=== PATIENT | male | born 1970 | race Caucasian/White ===

== ENCOUNTER 2017-02-10 06:29 | Day surgery (SDC) | payer BC, OTHER ==
[~2017-02-10 06:29] MED LIST: Buffered Lidocaine 0.9% SYRIN* 5 ML/SYR SYRINGE INTRADERM ONE
[2017-02-10] MEDS ORDERED: ceFAZolin 2 GM PREMIX (*) 2 GM/50 ML BAG IVPB ONE (06:56)
[2017-02-10] MEDS ORDERED: Bupivacaine 0.25% SDV* 30 ML ONE (07:11)
[2017-02-10] MEDS ORDERED: fentaNYL* 50 MCG/ML 2 ML VIAL (100 MCG VIAL) ONE ×2 (07:35→08:08)
[2017-02-10] MEDS ORDERED: Midazolam* 1 MG/ML 2 ML VIAL (2 MG) ONE ×2 (07:36→07:43)
[2017-02-10] MEDS ORDERED: Propofol* 10 MG/ML 20 ML BTL IV PUSH ONE (07:37)
[2017-02-10] MEDS ORDERED: Naloxone* 0.4 MG/ML 1 ML VIAL IV PRN (08:12)
[2017-02-10] MEDS ORDERED: Ondansetron INJ* 2 MG/ML VIAL IV PRN (08:12)
[2017-02-10 10:06] VITALS: BP 133/58
== END 2017-02-10 10:00 | disposition home or self-care (01) ==
LOC: OREAST 06:29
PROVIDERS: ATTEND Plastic Surgery
DX: C49.12 Malignant neoplasm of connective and soft tissue of left upper limb, including shoulder (principal); Z85.038 Personal history of other malignant neoplasm of large intestine; I10 Essential (primary) hypertension; G47.33 Obstructive sleep apnea (adult) (pediatric); F41.9 Anxiety disorder, unspecified
CPT/HCPCS: 88305; J0690; J2250; J2704; J3010